=== PATIENT | male | born 1985 | race Caucasian/White ===

== ENCOUNTER 2018-12-14 17:48 | Inpatient (IN) | payer MEDICAID, OTHER ==
[2018-12-14 18:37] LABS: Urine Appearance Cloudy; Urine Bilirubin Negative (Negative); Urine Blood Negative (Negative); Urine Color Yellow; Urine Glucose Negative (Negative); Urine Ketones Negative (Negative); Urine Nitrite Negative (Negative); Urine Protein Negative (Negative); Urine Specific Gravity 1.014 (1.010-1.030); Urine Urobilinogen Negative (Negative)
[2018-12-14 18:53] LABS: Urine Benzodiazepine Screen Presumptive Positive (None Detect); Urine Opiates Screen None Detected (None Detect)
[2018-12-14 19:00] LABS: ABS Basophils 0.1 10^3/ul (0-0.2); ABS Eosinophils 0.3 10^3/ul (0-0.6); ABS Lymphocytes 3.3 10^3/ul (1.0-4.8); ABS Monocytes 0.8 10^3/ul (0-0.8); ABS Neutrophils 3.2 10^3/ul (1.5-7.7); Eosinophil % 4.6 %; Hematocrit 43 % (42-52); Lymphocyte % 43.5 %; Mean Corpuscular HGB Conc 35 g/dL (31-36); Mean Corpuscular Hemoglobin 33 pg (27-31); Mean Corpuscular Volume 93 fL (80-94); Mean Platelet Volume 6.8 fL (7.4-10.4); Nucleated Red Blood Cells % 0.1; Platelet Count 331 10^3/uL (150-450); Red Blood Count 4.58 10^6 /uL (4.18-5.48); Red Cell Distribution Width 13 % (10-15); White Blood Count 7.6 10^3/uL (3.5-10.8)
[2018-12-14 19:15] LABS: ALT 21 U/L (7-52); AST 21 U/L (13-39); Albumin 4.2 g/dL (3.2-5.2); Albumin/Globulin Ratio 1.7 (1-3); Alkaline Phosphatase 63 U/L (34-104); Anion Gap 10 mmol/L (2-11); BUN/Creatinine Ratio 9.1 (8-20); Blood Urea Nitrogen 7 mg/dL (6-24); CO2 Carbon Dioxide 23 mmol/L (22-32); Chloride 105 mmol/L (101-111); EGFR African American 141.7 (>60); EGFR Non-African American 117.1 (>60); Globulin 2.5 g/dL (2-4); Glucose 101 mg/dL (70-100); Potassium 3.5 mmol/L (3.5-5.0); Sodium 138 mmol/L (135-145); Total Protein 6.7 g/dL (6.4-8.9)
--- NOTE | 2018-12-14 19:23 | ED ---
Psychiatric Complaint - HPI Summary HPI Summary: This pt is a 33 y/o male presenting to [facility] c/o SI today. Pt reports he made "stupid comments" to his friends yesterday about suicide. He states "but am I really suicidal? No." Denies HI. He notes his has been smoking crystal meth for the last 6 months and this has aggravated his mental health. Per triage not, pt has taken 9 Xanax pills in the last 24 hours. Pt reports one prior suicide attempt. He admits to alcohol use and smoking cigarettes, in addition to crystal meth use. PMHx includes depression, anxiety. He does not take any medications. - History Of Current Complaint Chief Complaint: EDSuicidal Time Seen by Provider: 12/14/18 18:23 Hx Obtained From: Patient Onset/Duration: Lasting Days, Still Present Timing: Days Severity Currently: Moderate Character: Depressed Aggravating Factor(s): Drug Use Alleviating Factor(s): Nothing Related History: Positive For: Prior Psychiatric Issues Has Suicidal: Reports: Thoughts, Has Prior Attempt(s). Denies: With A Plan Has Homicidal: Denies: Thoughts, With A Plan PMH/Surg Hx/FS Hx/Imm Hx Endocrine/Hematology History: Denies: Hx Diabetes Cardiovascular History: Denies: Hx Hypertension Psychiatric History: Reports: Hx Substance Abuse - Immunization History Immunizations Up to Date: Unable to Obtain/Confirm Infectious Disease History: No Infectious Disease History: Denies: Traveled Outside the [place] in Last 30 Days - Family History Family History: No FHx of depression. - Social History Alcohol Use: Daily Alcohol Amount: 3-4 strawberry margaritia drinks Substance Use Type: Reports: Marijuana, Other Substance Use Comment - Amount & Last Used: crack, ICE, Xanax, meth Smoking Status (MU): Current Every Day Smoker Review of Systems Negative: Fever, Chills Cardiovascular: Negative Respiratory: Negative Psychological: Other - POSITIVE: SI thoughts Positive: Depressed. Negative: Other - NEGATIVE: SI plan, HI All Other Systems Reviewed And Are Negative: Yes Physical Exam - Summary Physical Exam Summary: Appearance: Well appearing, no pain distress Skin: warm, dry, reflects adequate perfusion Head/face: normal Eyes: EOMI, TERESA ENT: normal Neck: supple, non-tender Respiratory: CTA, breath sounds present Cardiovascular: RRR, pulses symmetrical Abdomen: non-tender, soft Musculoskeletal: normal, strength/ROM intact Neuro: normal, sensory motor intact, A&Ox3 Psych: depressed affect Triage Information Reviewed: Yes Vital Signs On Initial Exam: Initial Vitals Temp Pulse Resp BP Pulse Ox 98.3 F 120 16 159/104 97 12/14/18 18:00 12/14/18 18:00 12/14/18 18:00 12/14/18 18:00 12/14/18 18:00 Vital Signs Reviewed: Yes Diagnostics - Vital Signs Vital Signs Temp Pulse Resp BP Pulse Ox 12/14/18 18:00 98.3 F 120 16 159/104 97 - Laboratory Lab Results: Lab Results 12/14/18 12/14/18 12/14/18 Range/Units 18:15 18:15 18:53 WBC 7.6 (3.5-10.8) 10^3/uL RBC 4.58 (4.18-5.48) 10^6 /uL Hgb 15.0 (14.0-18.0) g/dL Hct 43 (42-52) % MCV 93 (80-94) fL MCH 33 H (27-31) pg MCHC 35 (31-36) g/dL RDW 13 (10-15) % Plt Count 331 (150-450) 10^3/uL MPV 6.8 L (7.4-10.4) fL Neut % (Auto) 41.3 % Lymph % (Auto) 43.5 % [place] % (Auto) 9.9 % Eos % (Auto) 4.6 % Baso % (Auto) 0.7 % Absolute Neuts (auto) 3.2 (1.5-7.7) 10^3/ul Absolute Lymphs (auto) 3.3 (1.0-4.8) 10^3/ul Absolute Monos (auto) 0.8 (0-0.8) 10^3/ul Absolute Eos (auto) 0.3 (0-0.6) 10^3/ul Absolute Basos (auto) 0.1 (0-0.2) 10^3/ul Absolute Nucleated RBC 0.0 10^3/ul Nucleated RBC % 0.1 Sodium (135-145) mmol/L Potassium (3.5-5.0) mmol/L Chloride (101-111) mmol/L Carbon Dioxide (22-32) mmol/L Anion Gap (2-11) mmol/L BUN (6-24) mg/dL Creatinine (0.67-1.17) mg/dL Est GFR ( Amer) (>60) Est GFR (Non-Af Amer) (>60) BUN/Creatinine Ratio (8-20) Glucose (70-100) mg/dL Calcium (8.6-10.3) mg/dL Total Bilirubin (0.2-1.0) mg/dL AST (13-39) U/L ALT (7-52) U/L Alkaline Phosphatase (34-104) U/L Total Protein (6.4-8.9) g/dL Albumin (3.2-5.2) g/dL Globulin (2-4) g/dL Albumin/Globulin Ratio (1-3) TSH Urine Color Yellow Urine Appearance Cloudy Urine pH 7.0 (5-9) Ur Specific [place] 1.014 (1.010-1.030) Urine Protein Negative (Negative) Urine Ketones Negative (Negative) Urine Blood Negative (Negative) Urine Nitrate Negative (Negative) Urine Bilirubin Negative (Negative) Urine Urobilinogen Negative (Negative) Ur Leukocyte Esterase Negative (Negative) Urine Glucose Negative (Negative) Salicylates Urine Opiates Screen None detected (None Detect) Acetaminophen Ur Barbiturates Screen None detected (None Detect) Ur Phencyclidine Scrn None detected (None Detect) Ur Amphetamines Screen Presumptive positive A (None Detect) U Benzodiazepines Scrn Presumptive positive A (None Detect) Urine Cocaine Screen None detected (None Detect) U Cannabinoids Screen None detected (None Detect) Serum Alcohol 12/14/18 Range/Units 18:53 WBC (3.5-10.8) 10^3/uL RBC (4.18-5.48) 10^6 /uL Hgb (14.0-18.0) g/dL Hct (42-52) % MCV (80-94) fL MCH (27-31) pg MCHC (31-36) g/dL RDW (10-15) % Plt Count (150-450) 10^3/uL MPV (7.4-10.4) fL Neut % (Auto) % Lymph % (Auto) % [place] % (Auto) % Eos % (Auto) % Baso % (Auto) % Absolute Neuts (auto) (1.5-7.7) 10^3/ul Absolute Lymphs (auto) (1.0-4.8) 10^3/ul Absolute Monos (auto) (0-0.8) 10^3/ul Absolute Eos (auto) (0-0.6) 10^3/ul Absolute Basos (auto) (0-0.2) 10^3/ul Absolute Nucleated RBC 10^3/ul Nucleated RBC % Sodium 138 (135-145) mmol/L Potassium 3.5 (3.5-5.0) mmol/L Chloride 105 (101-111) mmol/L Carbon Dioxide 23 (22-32) mmol/L Anion Gap 10 (2-11) mmol/L BUN 7 (6-24) mg/dL Creatinine 0.77 (0.67-1.17) mg/dL Est GFR ( Amer) 141.7 (>60) Est GFR (Non-Af Amer) 117.1 (>60) BUN/Creatinine Ratio 9.1 (8-20) Glucose 101 H (70-100) mg/dL Calcium 9.0 (8.6-10.3) mg/dL Total Bilirubin 0.40 (0.2-1.0) mg/dL AST 21 (13-39) U/L ALT 21 (7-52) U/L Alkaline Phosphatase 63 (34-104) U/L Total Protein 6.7 (6.4-8.9) g/dL Albumin 4.2 (3.2-5.2) g/dL Globulin 2.5 (2-4) g/dL Albumin/Globulin Ratio 1.7 (1-3) TSH Pending Urine Color Urine Appearance Urine pH (5-9) Ur Specific [place] (1.010-1.030) Urine Protein (Negative) Urine Ketones (Negative) Urine Blood (Negative) Urine Nitrate (Negative) Urine Bilirubin (Negative) Urine Urobilinogen (Negative) Ur Leukocyte Esterase (Negative) Urine Glucose (Negative) Salicylates Pending Urine Opiates Screen (None Detect) Acetaminophen Pending Ur Barbiturates Screen (None Detect) Ur Phencyclidine Scrn (None Detect) Ur Amphetamines Screen (None Detect) U Benzodiazepines Scrn (None Detect) Urine Cocaine Screen (None Detect) U Cannabinoids Screen (None Detect) Serum Alcohol Pending Result Diagrams: 12/14/18 18:53 12/14/18 18:53 Lab Statement: Any lab studies that have been ordered have been reviewed, and results considered in the medical decision making process. Re-Evaluation - Re-Evaluation First Eval Re-Evaluation Time: 20:02 Comment: Pt is medically cleared. Course/Dx - Course Assessment/Plan: Pt is a 33 y/o male presenting to [facility] c/o SI today. Pt reports he made "stupid comments" to his friends yesterday about suicide. He states "but am I really suicidal? No." Denies HI. He notes his has been smoking crystal meth for the last 6 months and this has aggravated his mental health. Blood work obtained. Toxicology is positive for benzodiazepine, amphetamine, serum alcohol of 75. Pt is medically cleared. A mental health evaluation is pending. Therefore pt will be signed out to Dr. Sofia pending MHE. - Differential Dx/Clinical Impression Provider Diagnosis: Depression Discharge - Sign-Out/Discharge Documenting (check all that apply): Sign-Out Patient Signing out patient TO: Michael Sofia - pending MHE Patient Received Moderate/Deep Sedation with Procedure: No - Discharge Plan Condition: Stable Referrals: No Primary Care Phys,NOPCP [Primary Care Provider] - - Billing Disposition and Condition Condition: STABLE - Attestation Statements Document Initiated by Damienibe: Yes Documenting Scribe: Krystal Garrison Provider For Whom Mamie is Documenting (Include Credential): Pancho Navarrete MD Scribe Attestation: Krystal Lucas, scribed for Pancho Navarrete MD on 12/14/18 at 2153. Scribe Documentation Reviewed: Yes Provider Attestation: The documentation as recorded by the Krystal javier accurately reflects the service I personally performed and the decisions made by me, Pancho Navarrete MD Status of Scribe Document: Viewed
[2018-12-14 19:43] LABS: Acetaminophen < 15 mcg/mL; Alcohol 75 mg/dL (<10); Salicylate < 2.50 mg/dL (<30)
[2018-12-14 19:58] LABS: TSH (Thyroid Stimulating Horm) 0.93 mcIU/mL (0.34-5.60)
--- NOTE | 2018-12-14 22:00 | ED ---
Progress - Progress Note Progress Note: Pt is a signout from Dr. Navarrete to Dr. Sofia at shift change 2200 12/14/18 pending a MHE. - Consult/PCP Time Called: 20:02 Re-Evaluation - Re-Evaluation First Eval Re-Evaluation Time: 20:02 Comment: Pt is medically cleared. Course/Dx - Course Course Of Treatment: Pt is a signout from Dr. Navarrete to Dr. Sofia at shift change 2200 12/14/18 pending a MHE. The pt was put on a MHU hold per Dr. Olivera , Psychiatrist, at 2201. This pt will be signed out to Dr. Gray at 0700 shift change pending a mental health evaluation. - Diagnoses Provider Diagnoses: Depression - Provider Notifications Discussed Care Of Patient With: Mumtaz Olivera Time Discussed With Above Provider: 22:01 Instructed by Provider To: Other - MHU hold until morning per Dr. Olivera Psychiatrist. Discharge - Sign-Out/Discharge Documenting (check all that apply): Sign-Out Patient, Receiving Sign-Out Signing out patient TO: Lynette Patel Receiving patient FROM: Pancho Navarrete Patient Received Moderate/Deep Sedation with Procedure: No - Discharge Plan Condition: Stable Referrals: No Primary Care Phys,NOPCP [Primary Care Provider] - - Attestation Statements Document Initiated by Scribe: Yes Documenting Scribe: Neftali Waller Provider For Whom Scribe is Documenting (Include Credential): Michael Sofia MD Scribe Attestation: INeftali, scribed for Michael Sofia MD on 12/15/18 at 0618. Status of Scribe Document: Ready
--- NOTE | 2018-12-15 06:57 | PN ---
ED Psychiatric Progress Note Date of Service: 12/14/18 Subjective: This is a 33 year-old M who is pending admission to [facility] / transfer to another psychiatric facility / discharge to home / or being observed secondary to SI. Pt. examined in room 5 at 0650. He is sitting up in bed in NAD. Objective: Vitals: Most recent vital signs documented below. General NAD, Alert and oriented x3. Laboratory: Current laboratory results documented below. Assessment: SI Plan: Pending MHE. Vital Signs Temp Pulse Resp BP Pulse Ox 97.7 F 108 15 145/92 95 12/14/18 22:55 12/15/18 02:52 12/15/18 02:52 12/15/18 02:52 12/15/18 02:52 Lab Results - Entire Visit 12/14/18 12/14/18 12/14/18 18:53 18:53 18:15 WBC 7.6 RBC 4.58 Hgb 15.0 Hct 43 MCV 93 MCH 33 H MCHC 35 RDW 13 Plt Count 331 MPV 6.8 L Neut % (Auto) 41.3 Lymph % (Auto) 43.5 [place] % (Auto) 9.9 Eos % (Auto) 4.6 Baso % (Auto) 0.7 Absolute Neuts (auto) 3.2 Absolute Lymphs (auto) 3.3 Absolute Monos (auto) 0.8 Absolute Eos (auto) 0.3 Absolute Basos (auto) 0.1 Absolute Nucleated RBC 0.0 Nucleated RBC % 0.1 Sodium 138 Potassium 3.5 Chloride 105 Carbon Dioxide 23 Anion Gap 10 BUN 7 Creatinine 0.77 Est GFR ( Amer) 141.7 Est GFR (Non-Af Amer) 117.1 BUN/Creatinine Ratio 9.1 Glucose 101 H Calcium 9.0 Total Bilirubin 0.40 AST 21 ALT 21 Alkaline Phosphatase 63 Total Protein 6.7 Albumin 4.2 Globulin 2.5 Albumin/Globulin Ratio 1.7 TSH 0.93 Urine Color Urine Appearance Urine pH Ur Specific [place] Urine Protein Urine Ketones Urine Blood Urine Nitrate Urine Bilirubin Urine Urobilinogen Ur Leukocyte Esterase Urine Glucose Salicylates < 2.50 Urine Opiates Screen None detected Acetaminophen < 15 Ur Barbiturates Screen None detected Ur Phencyclidine Scrn None detected Ur Amphetamines Screen Presumptive positive A U Benzodiazepines Scrn Presumptive positive A Urine Cocaine Screen None detected U Cannabinoids Screen None detected Serum Alcohol 75 H 12/14/18 18:15 WBC RBC Hgb Hct MCV MCH MCHC RDW Plt Count MPV Neut % (Auto) Lymph % (Auto) [place] % (Auto) Eos % (Auto) Baso % (Auto) Absolute Neuts (auto) Absolute Lymphs (auto) Absolute Monos (auto) Absolute Eos (auto) Absolute Basos (auto) Absolute Nucleated RBC Nucleated RBC % Sodium Potassium Chloride Carbon Dioxide Anion Gap BUN Creatinine Est GFR ( Amer) Est GFR (Non-Af Amer) BUN/Creatinine Ratio Glucose Calcium Total Bilirubin AST ALT Alkaline Phosphatase Total Protein Albumin Globulin Albumin/Globulin Ratio TSH Urine Color Yellow Urine Appearance Cloudy Urine pH 7.0 Ur Specific [place] 1.014 Urine Protein Negative Urine Ketones Negative Urine Blood Negative Urine Nitrate Negative Urine Bilirubin Negative Urine Urobilinogen Negative Ur Leukocyte Esterase Negative Urine Glucose Negative Salicylates Urine Opiates Screen Acetaminophen Ur Barbiturates Screen Ur Phencyclidine Scrn Ur Amphetamines Screen U Benzodiazepines Scrn Urine Cocaine Screen U Cannabinoids Screen Serum Alcohol
--- NOTE | 2018-12-15 07:26 | ED ---
Progress - Progress Note Progress Note: Pt is a signout from Dr. Sofia to Dr. Patel at shift change 0700 on 12/15/18 pending a MHE. - Consult/PCP Time Called: 20:02 Re-Evaluation - Re-Evaluation First Eval Re-Evaluation Time: 20:02 Comment: Pt is medically cleared. 2nd re-eval Re-Evaluation Time: 09:10 Comment: Pt will be involuntarily admitted to the [facility]. Third Eval Re-Evaluation Time: 09:38 Comment: The pt is sleeping. Course/Dx - Course Course Of Treatment: Pt is a signout from Dr. Sofia to Dr. Patel at shift change 0700 on 12/15/[address] Mercado will be involuntarily admitting the patient with dx of mood disorder unspecified. - Diagnoses Provider Diagnoses: Mood disorder - Provider Notifications Time Discussed With Above Provider: 22:01 Instructed by Provider To: Other - MHU hold until morning per Dr. Olivera, Psychiatrist. Discharge - Sign-Out/Discharge Documenting (check all that apply): Patient Departure, Receiving Sign-Out Receiving patient FROM: Michael Sofia - Discharge Plan Condition: Stable Disposition: PSYCHIATRIC FACILITY-[facility] [place] - Billing Disposition and Condition Condition: STABLE Disposition: Psychiatric Facility [facility] [place] - Attestation Statements Document Initiated by Scribe: Yes Documenting Scribe: Bailee Scott Provider For Whom Damienibe is Documenting (Include Credential): Lynette Rodriguez MD. Scribe Attestation: I, Bailee Scott, scribed for Lynette Patel MD. on 12/15/18 at 1719. Scribe Documentation Reviewed: Yes Provider Attestation: The documentation as recorded by the scribe, Bailee Scott accurately reflects the service I personally performed and the decisions made by me, Lynette Patel MD. Status of Scribe Document: Viewed
[2018-12-15] MEDS ORDERED: Al Hydrox/Mg Hydrox/Simet LIQ* 30 ML UDC PO PRN (10:30)
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
[2018-12-15] MEDS: Nicotine* 2MG (FRUIT FLAVOR) GUM PO PRN ×2 (13:26→16:58)
[2018-12-15] MEDS: Nicotine Patch Removal NOTE PATCH OFF SCH (21:04)
[2018-12-16] MEDS: Nicotine* 2MG (FRUIT FLAVOR) GUM PO PRN ×2 (07:36→12:52)
[2018-12-16 09:37] LABS: HDL Cholesterol 40.6 mg/dL
[2018-12-16] MEDS: Vitamin THERAPEUTIC TAB PO SCH (10:41)
[2018-12-16] MEDS: Nicotine PATCH 21 MG/24 HR* PATCH TRANSDERM SCH (10:41)
[2018-12-16 11:17] LABS: Hepatitis C Antibody Negative (Negative)
--- NOTE | 2018-12-16 11:33 | PN ---
Subjective - Subjective Date of Service: 12/16/18 Service Type: [id number] Hosp care 35 min high complexity Subjective: Nursing Report: Patient was visible on unit, no behavioral events. Slept overnight without incident. He is not attending group activities. CC: "I want to go to rehab" Patient was seen and evaluated in the common room. The patient reported that he never wanted to end his life and that he said that when he only said that when he was intoxicated. He describes how meth has ruined his life and his friendships. He mentioned that things will be different now because he was arrested and feels disgusted with himself. He reported having adequate appetite and sleep. Objective - General Observations Appearance: Disheveled Appears Stated Age: Yes Stature: Thin Posture: Slumped Eye Contact: Average Behavior/Activity: Accelerated - Interaction Observations Attitude Towards Examiner: Manipulative Stated Mood: Dysphoric Affect: Blunted Speech Pattern/Tone: Clear Thought Process: Coherent Perception: WNL Thought Content: WNL Hallucination Type: None Delusion Type: None - Cognitive Function Orientation: A&O x 4 Level of Consciousness: Awake - Medication Compliance Cooperative with Inpatient Medication Regimen: No - Group Participation Participates in Group Activities: No Assessment - Assessment Merits Inpatient Hospitalization: For Immediate Safety Plan - Plan Treatment Plan: Name: JERZY CAMACHO Birthdate: 1985 [id number] #Q15 minute observation. # The patient requires psychiatric inpatient admission at this time to assure safety, receive treatment and work toward stabilization. # Collaboration with Chair Finisher Pia Dueñas #HIV, RPR, and Hep C ordered #Substance Abuse resources offered and patient requesting outpatient rehab resources #Tobacco use disorder: nicotine supplement offered and put in place. #Goals before discharge include: To eliminate/ reduce suicidal ideation Tentative Discharge: Pending psychiatric stabilization. The risks, benefits, and alternative treatment options were discussed as well as the risks of refusing treatment. Continued Medication Management: Continue Outpt Medication Medications: Current Medications Acetaminophen (Tylenol Tab*) 650 mg PO Q4H PRN PRN Reason: PAIN or TEMP > 101 F Al Hydrox/Mg Hydrox/Simethicone (Maalox Plus*) 30 ml PO Q4H PRN PRN Reason: INDIGESTION Multivitamins (Theragran Tab*) 1 tab PO DAILY NATASHA Last Admin: 12/16/18 10:41 Dose: 1 tab Nicotine (Nicotine Patch 21 Mg/24 Hr*) 1 patch TRANSDERM DAILY [facility] Last Admin: 12/16/18 10:41 Dose: 1 patch Nicotine Polacrilex (Nicotine Gum*) 2 mg PO Q2H PRN PRN Reason: CRAVINGS Last Admin: 12/16/18 07:36 Dose: 2 mg Pharmacy Profile Note (Nicotine Patch Removal Note*) 1 note PATCH OFF 2100 [facility] Last Admin: 12/15/18 21:04 Dose: 1 note - Discharge Plan Discharge Plan: Drug/Alcohol Rehab
[2018-12-16 13:58] LABS: HIV 4th Generation Negative (Negative)
[2018-12-16] MEDS: Acetaminophen TAB* 325 MG PO PRN (14:04)
[2018-12-16] MEDS: Nicotine Patch Removal NOTE PATCH OFF SCH (21:30)
[2018-12-17] MEDS ORDERED: Escitalopram * 10 MG TAB PO SCH (09:00)
[2018-12-17] MEDS: Nicotine* 2MG (FRUIT FLAVOR) GUM PO PRN ×2 (09:22→14:46)
[2018-12-17] MEDS: Vitamin THERAPEUTIC TAB PO SCH (09:22)
[2018-12-17] MEDS: Nicotine PATCH 21 MG/24 HR* PATCH TRANSDERM SCH (09:25)
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
[2018-12-17 11:01] VITALS: BP 190/98
[2018-12-17] MEDS: Acetaminophen TAB* 325 MG PO PRN (14:46)
== END 2018-12-17 16:00 | disposition home or self-care (01) | DRG 774 ==
LOC: ED 17:48 → BSU 12-15 10:09
PROVIDERS: ADMIT Psychiatry & Neurology Psychiatry; ATTEND Psychiatry & Neurology Psychiatry
DX: F15.94 Other stimulant use, unspecified with stimulant-induced mood disorder (principal); R45.851 Suicidal ideations; F14.94 Cocaine use, unspecified with cocaine-induced mood disorder; F17.210 Nicotine dependence, cigarettes, uncomplicated; Z62.810 Personal history of physical and sexual abuse in childhood; Z81.3 Family history of other psychoactive substance abuse and dependence; Z72.89 Other problems related to lifestyle
CPT/HCPCS: 36415; 80053; 80061; 80307; 80320; 80329; 81003; 83036; 84443; 85025; 86780; 86803; 87389; 99222; 99233; 99238; 99285; A9270-GY; G0480

== ENCOUNTER 2019-01-17 20:54 | Emergency (ER) | payer OTHER ==
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
[2019-01-17] MEDS ORDERED: oxyCODONE TAB* 5 MG TAB PO ONE ×2 (21:06→22:38)
[2019-01-17] MEDS ORDERED: Ibuprofen TAB* 600 MG PO ONE (21:06)
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
[2019-01-17 22:46] VITALS: BP 151/102
== END 2019-01-17 22:45 | disposition home or self-care (01) ==
LOC: ED 20:54
DX: S52.571A Other intraarticular fracture of lower end of right radius, initial encounter for closed fracture (principal); W01.0XXA Fall on same level from slipping, tripping and stumbling without subsequent striking against object, initial encounter; Y92.9 Unspecified place or not applicable; F17.200 Nicotine dependence, unspecified, uncomplicated
CPT/HCPCS: 99282; A9270-GY

== ENCOUNTER 2019-01-26 08:04 | Day surgery (SDC) | payer OTHER ==
--- NOTE | 2019-01-22 09:30 | HP ---
PREOPERATIVE HISTORY AND PHYSICAL: DATE OF SURGERY/ADMISSION: 01/26/19 DATE OF OFFICE VISIT/ENCOUNTER: ATTENDING SURGEON: Machelle Starr MD* (dictated by DAXA Son). PROCEDURE: Open reduction internal fixation, right wrist. HISTORY OF PRESENT ILLNESS: Shayne Kelly is a 33-year-old male with a history of polysubstance abuse and for the past 2 months, he has been in outpatient recovery. He does admit to still using alcohol on occasion. The patient suffered injury to his right wrist on 01/17/19 when he tripped over his shoe lace and fell on to an outstretched right hand. He was seen at [facility] and had some x-rays, which showed a comminuted, displaced interarticular fracture of the distal radius. He was splinted and referred to Dr. Starr for followup and appropriate treatment. He has been taking ibuprofen and Tylenol for pain control, but is requesting something stronger medication bedoya for pain management. He denies any numbness or tingling. This is his dominant arm. After evaluation by Dr. Starr and review of x- rays, he has consented to proceed with surgical intervention for best outcome. A CT scan will also be performed prior to proceeding with surgery. He was prescribed a one-time prescription for tramadol for his current pain and we will plan on using Toradol for postoperative pain management. PAST MEDICAL HISTORY: History of polysubstance abuse. PAST SURGICAL HISTORY: None. CURRENT MEDICATIONS: 1. Ibuprofen and Tylenol p.r.n. 2. Vitamin daily. 3. Vitamin C daily. ALLERGIES: No known drug allergies. FAMILY MEDICAL HISTORY: Diabetes, hypertension, cancer. 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 He is in outpatient recovery. He is a current smoker. He smokes a pack per day, has done so for the past 10 years. He denies any recreational drug use over the past 2 months. He is occasionally still drinking alcohol. REVIEW OF SYSTEMS: Negative for general, cephalic, cardiovascular, respiratory , GI, , other musculoskeletal, integumentary, endocrine, neurologic, and hematologic symptoms. Infectious Disease: Negative for MRSA, hepatitis C, HIV. PHYSICAL EXAMINATION GENERAL: Well-developed, well-nourished 33-year-old male, in no acute distress. VITAL SIGNS: Height 5 feet 7 inches, weight 158 pounds, pulse rate 100, blood pressure 136/70. HEENT: Normocephalic, atraumatic. Pupils are equal, round, and reactive to light and accommodation. Extraocular movements are intact. Throat is clear. NECK: Supple. No palpable lymph nodes. PULMONARY: Lungs are clear to auscultation bilaterally. No wheezes, rales, or rhonchi. CARDIOVASCULAR: Regular rate and rhythm. S1, S2. No murmurs, rubs, or gallops. No edema. ABDOMEN: Positive bowel sounds, soft, nontender. MUSCULOSKELETAL: On exam of his right wrist, he has some visible deformity and moderate swelling at the wrist. There is visible mild ecchymosis. He has good motion in his fingers and can make a good fist. Neurovascular function is intact. NEUROLOGICAL: Alert and oriented x3. Cranial nerves II through XII are intact. Sensation is intact to light touch. SKIN: Intact. IMAGING STUDIES: X-rays: AP, lateral, and oblique of the left wrist show an intraarticular comminuted, displaced distal radius fracture. IMPRESSION: Right distal radius fracture. PLAN: The patient is scheduled to undergo an open reduction internal fixation of right wrist with Dr. Starr on 01/26/19. We will plan on obtaining a CT scan prior to date of surgery. He will return to the office 10 days postop for followup and suture removal. The patient was prescribed tramadol for current pain and will be prescribed Toradol for postoperative pain management. DAXA SON [id number]/[facility] #: [id number] ANNMARIE
[~2019-01-26 08:04] MED LIST: Buffered Lidocaine 1% SYRIN* 1 ML/SYRINGE INTRADERM ONE; Dexamethasone TAB* 4 MG ONE; Dexamethasone TAB* 4 MG PO ONE; DiMENhydriNATE IV* 50 MG/ML VIAL IV PUSH PRN; Famotidine IV* 10 MG/ML 2 ML (20 mg) IV ONE; Famotidine IV* 10 MG/ML 2 ML (20 mg) ONE; HYDROmorphone INJ1* 1 MG/ML SYRINGE IV PRN; Lactated Ringers 1000 ML Bag* 1,000 ML IV SCH; Naloxone* 0.4 MG/ML 1 ML VIAL IV PRN; Ondansetron ODT TAB* 4 MG ONE; Ondansetron ODT TAB* 4 MG PO ONE; PROCHLORPERAZINE INJ 5 MG/ML 2 ML VIAL IV PRN; fentaNYL* 50 MCG/ML 2 ML VIAL (100 MCG VIAL) IV PRN; oxyCODONE/Acetamin 5/325 MG* TAB PO PRN
[2019-01-26] MEDS ORDERED: ceFAZolin 2 GM in NS PREMIX(*) 2 GM/100 ML BAG IVPB ONE (08:29)
[2019-01-26] MEDS ORDERED: KETAMINE HCL* 50 MG/ML 10 ML VIAL ONE (09:03)
[2019-01-26] MEDS ORDERED: Midazolam* 1 MG/ML 5 ML VIAL (5 MG) ONE (09:03)
[2019-01-26] MEDS ORDERED: fentaNYL* 50 MCG/ML 2 ML VIAL (100 MCG VIAL) ONE (09:03)
[2019-01-26] MEDS ORDERED: Bupivacaine 0.5% SDV PF* 30ML VIAL ONE (09:27)
[2019-01-26] MEDS ORDERED: Lidocaine 2% PF * 5 ML VIAL ONE (10:00)
[2019-01-26] MEDS ORDERED: Ketorolac INJ* 30 MG/ML 1 ML VIAL ONE (10:00)
[2019-01-26] MEDS ORDERED: Propofol* 10 MG/ML 20 ML BTL ONE (10:00)
[2019-01-26] MEDS ORDERED: HYDROmorphone INJ* 0.5 MG/0.5 ML SYRINGE ONE ×2 (10:02→10:26)
[2019-01-26 12:09] VITALS: BP 140/99
--- NOTE | 2019-01-26 15:21 | OP ---
DATE OF OPERATION: 01/26/19 [facility] DATE OF : 87 SURGEON: Machelle Starr MD STEEL [employer]IE [employer]ESS SET UP OPERATOR: DAXA Son ANESTHESIA: General. PRE-OP DIAGNOSIS: Comminuted intraarticular fracture of right distal radius. POST-OP DIAGNOSIS: Comminuted intraarticular fracture of right distal radius. PROCEDURE PERFORMED: Open reduction internal fixation of right distal radius. ESTIMATED BLOOD LOSS: Zero. TOURNIQUET TIME: Approximately 45 minutes. INDICATIONS FOR PROCEDURE: Shayne is a 33-year-old male who fell and injured his right wrist. X-ray and CT scan show a displaced intraarticular fracture with several articular fragments. He presents for ORIF. DESCRIPTION OF PROCEDURE: The patient was brought to the operating room and was given a general anesthetic and placed in supine position on the operating table with a tourniquet around his right upper arm. Skin of his right upper extremity was prepped and draped in the usual sterile fashion. The upper extremity was exsanguinated and the tourniquet elevated to 250 mmHg. A longitudinal incision was made over the FCR tendon. We dissected through the subcutaneous tissue down to the FCR tendon sheath. The superficial and deep portions of the sheath were incised longitudinally. We then retracted the FPL muscle and tendon ulnarly. The pronator quadratus muscle was incised and subperiosteally dissected off the fracture fragments. The fracture was reduced and its position was confirmed on the C-arm. We secured a plate from the [employer]ynthe[employer] variable angle distal radius set with four distal and three proximal screws. The four distal screws secured at least three intraarticular fragments. The wound was irrigated with saline. The C-arm was used to visualize the fracture fragments and the hardware which were all in good position. The pronator quadratus was repaired over the plate with 2-0 Vicryl suture. The FCR tendon sheath was reapproximated with 2-0 Vicryl suture and the skin edges reapproximated with 4-0 nylon suture. The wound was dressed with Xeroform, 4x4, Webril, and a volar splint with an Nam wrap. The patient tolerated the procedure well and was brought to the recovery room in good condition. [id number]/[facility] #: [id number] [facility] HEALTH NETWORKJannie
== END 2019-01-26 11:58 | disposition home or self-care (01) ==
LOC: OREAST 08:04
PROVIDERS: ATTEND Orthopaedic Surgery
DX: S52.571A Other intraarticular fracture of lower end of right radius, initial encounter for closed fracture (principal); W19.XXXA Unspecified fall, initial encounter; Y92.9 Unspecified place or not applicable; Z72.0 Tobacco use; F19.20 Other psychoactive substance dependence, uncomplicated; F10.10 Alcohol abuse, uncomplicated
CPT/HCPCS: 76000; A9270-GY; C1713; C1776; J0690; J1170; J1885; J2250; J2704; J3010; J3490; J8540

== ENCOUNTER 2019-03-16 08:42 | Day surgery (SDC) | payer OTHER ==
--- NOTE | 2019-03-10 13:45 | HP ---
AMENDED REPORT NOW INCLUDES DESIGNATED COSIGNER PREOPERATIVE HISTORY AND PHYSICAL: DATE OF SURGERY/ADMISSION: 03/16/19 DATE OF OFFICE VISIT/ENCOUNTER: 03/08/19 ATTENDING SURGEON: Machelle Starr MD.* (DICTATED BY DAXA SALAS) PROCEDURE: Revision open reduction internal fixation, right wrist. HISTORY OF PRESENT ILLNESS: This is a 33-year-old male with a history of polysubstance abuse. He has recently been in outpatient recovery. He on underwent an open reduction internal fixation of a right wrist fracture. Intraoperatively, there was successful reduction of the fracture and placement of plate and screws. As time went on, postoperatively x-rays showed some loss of the reduction, and the patient developed pain and decreased motion with flexion and supination of the wrist. Dr. Starr at this time is recommending a revision of the open reduction internal fixation and the patient has consented to proceed. PAST MEDICAL HISTORY: History of polysubstance abuse. PAST SURGICAL HISTORY: Open reduction internal fixation, right wrist. CURRENT MEDICATIONS: 1. Ibuprofen and Tylenol p.r.n. 2. Vitamin daily. 3. Vitamin C daily. ALLERGIES: No known drug allergies. FAMILY MEDICAL HISTORY: Diabetes, hypertension, cancer. 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 He is in outpatient recovery. He is a current smoker and smokes a pack a day, has done so for the past 10 years. He denies recreational drug use over the past 2 months. He is occasionally still drinking alcohol. REVIEW OF SYSTEMS: Negative for general, cephalic, cardiovascular, respiratory , GI, , other musculoskeletal, integumentary, endocrine, neurologic, and hematologic symptoms. Infectious Disease: Negative for MRSA, hepatitis C, HIV. PHYSICAL EXAMINATION GENERAL: Well-developed, well-nourished 33-year-old male, in no acute distress. VITAL SIGNS: Height 5 feet 7 inches, weight 150 pounds, pulse rate 100, blood pressure 140/90. HEENT: Normocephalic, atraumatic. Pupils are equal, round, and reactive to light and accommodation. Extraocular movements are intact. Throat is clear. NECK: Supple. No palpable lymph nodes. PULMONARY: Lungs are clear to auscultation bilaterally. No wheezes, rales, or rhonchi. CARDIOVASCULAR: Regular rate and rhythm. S1, S2. No murmurs, rubs, or gallops. No edema. ABDOMEN: Positive bowel sounds, soft, nontender. MUSCULOSKELETAL: On exam of his right wrist, he has minimal tenderness to palpation of the distal radius, but has trouble with flexion of the wrist, supination of the forearm. He can make a good fist. Neurovascular function is intact. He has positive Tinel's of the median nerve. IMAGING STUDIES: X-rays: AP and lateral of the right wrist show one of the fracture fragments has escaped from under the plate and is sitting volarly. This may be blocking his flexion. Otherwise, the fracture is reasonably well aligned. IMPRESSION: Status post ORIF of the right wrist with some loss of reduction, malalignment of one of the articular fragments. PLAN: The patient is scheduled to undergo a revision open reduction internal fixation of right wrist with Dr. Starr on 03/16/19. He will return to the office in 10 days postop for followup and suture removal. The patient will be prescribed Toradol for postoperative pain management. DAXA SALAS [id number]/[facility] #: [id number] ANNMARIE
[~2019-03-16 08:42] MED LIST changes: -Dexamethasone TAB* 4 MG ONE; -Dexamethasone TAB* 4 MG PO ONE; -DiMENhydriNATE IV* 50 MG/ML VIAL IV PUSH PRN; -Famotidine IV* 10 MG/ML 2 ML (20 mg) IV ONE; -Famotidine IV* 10 MG/ML 2 ML (20 mg) ONE; -HYDROmorphone INJ1* 1 MG/ML SYRINGE IV PRN; -Naloxone* 0.4 MG/ML 1 ML VIAL IV PRN; -Ondansetron ODT TAB* 4 MG ONE; -Ondansetron ODT TAB* 4 MG PO ONE; -PROCHLORPERAZINE INJ 5 MG/ML 2 ML VIAL IV PRN; -fentaNYL* 50 MCG/ML 2 ML VIAL (100 MCG VIAL) IV PRN; -oxyCODONE/Acetamin 5/325 MG* TAB PO PRN
[2019-03-16] MEDS ORDERED: ceFAZolin 2 GM PREMIX in ORs 2 GM/50 ML BAG ONE (09:08)
[2019-03-16] MEDS ORDERED: Midazolam* 1 MG/ML 2 ML VIAL (2 MG) ONE (09:56)
[2019-03-16] MEDS ORDERED: fentaNYL* 50 MCG/ML 2 ML VIAL (100 MCG VIAL) ONE ×3 (09:56→12:29)
[2019-03-16] MEDS ORDERED: Buffered Lidocaine 1% SYRIN* 1 ML/SYRINGE INTRADERM ONE (10:04)
[2019-03-16] MEDS ORDERED: Bupivacaine 0.5%* 50 ML MDV VIAL ONE (10:46)
[2019-03-16] MEDS ORDERED: Naloxone* 0.4 MG/ML 1 ML VIAL IV PRN (12:35)
[2019-03-16] MEDS ORDERED: HYDROcodone/ACETAMIN 5-325 MG* 1 TAB PO PRN (12:35)
[2019-03-16] MEDS ORDERED: HYDROmorphone INJ1* 1 MG/ML SYRINGE IV PRN (12:35)
[2019-03-16] MEDS ORDERED: Lidocaine 2% PF * 5 ML VIAL ONE (12:51)
[2019-03-16] MEDS ORDERED: Propofol* 10 MG/ML 20 ML BTL ONE (12:51)
[2019-03-16] MEDS ORDERED: Ondansetron INJ* 2 MG/ML VIAL ONE (12:51)
[2019-03-16] MEDS ORDERED: Dexamethasone IV* 4 MG/ML 1 ML (4 MG) ONE (12:51)
[2019-03-16] MEDS ORDERED: HYDROcodone/ACETAMIN 5-325 MG* 1 TAB ONE (14:03)
[2019-03-16 14:06] VITALS: BP 119/82
--- NOTE | 2019-03-17 01:23 | OP ---
DATE OF OPERATION: 03/16/19 - [facility] DATE OF : 87 SURGEON: Machelle Starr MD COLLAR SEPARATOR: DAXA Son ANESTHESIA: General. PRE-OP DIAGNOSIS: Loss of fixation status post right distal radius open reduction internal fixation. POST-OP DIAGNOSIS: Loss of fixation status post right distal radius open reduction internal fixation. OPERATIVE PROCEDURE: Revision open reduction internal fixation of the right distal radius. INDICATIONS: Shayne is a 34-year-old male who had a very distal and comminuted fracture of the distal radius which was treated with open reduction internal fixation about 2 months ago. He has lost some of the fixation in his wrist; it subluxed; he presents for revision ORIF of the distal radius. ESTIMATED BLOOD LOSS: Zero. TOURNIQUET TIME: 1 hour and 15 minutes. DESCRIPTION OF PROCEDURE: The patient was brought to the operating room, was given a general anesthetic, placed in a supine position on the operating table with a tourniquet around his right upper arm. The skin of his right upper extremity was prepped and draped in the usual sterile fashion. The upper extremity was exsanguinated and the tourniquet elevated to 250 mmHg. The previous scar was incised and we dissected through the FCR fascia. The FPL muscle was retracted and the pronator quadratus was elevated off the plate. The plate was removed with the appropriate screw lease purchase truck driver and then we could see that the volar segment of the fracture had escaped distal to the plate and therefore was not captured by the distal end of the plate. This allowed the carpus to sublux volarly. The fracture fragments were carefully pried away from the main segment of the bone into the articular surface and then with some traction and compression, we were able to reapproximate the volar fragments to the dorsal fragments. These were secured with a wide plate from the [employer]ynthes variable angle set with 5 distal screws and 3 proximal screws. The proximal screws were locking because of the presence of the holes from the other plate. The position of the hardware and fracture fragments were checked on the C-arm in the AP and lateral views and found to be satisfactory. The joint was no longer subluxed and, with gentle range of motion, there did not appear to be any instability of the fracture fragments. The wound was copiously irrigated with saline. The pronator quadratus was repaired over the plate. The FCR tendon sheath was repaired with 2-0 Vicryl and the skin edges were reapproximated with 4-0 nylon suture and the wound was dressed with Xeroform, 4x4, Webril, and a sugar-tong splint. The patient tolerated the procedure well and was brought to the recovery room in good condition. [id number]/[facility] #: [id number] MTDD
== END 2019-03-16 14:21 | disposition home or self-care (01) ==
LOC: OREAST 08:42
PROVIDERS: ATTEND Orthopaedic Surgery
DX: T84.122A Displacement of internal fixation device of bone of right forearm, initial encounter (principal); S52.501S Unspecified fracture of the lower end of right radius, sequela; F19.10 Other psychoactive substance abuse, uncomplicated; F17.210 Nicotine dependence, cigarettes, uncomplicated; X58.XXXS Exposure to other specified factors, sequela; Y92.9 Unspecified place or not applicable
CPT/HCPCS: 76000; 88300; C1713; C1776; J0690; J1100; J2250; J2405; J2704; J3010; J3490

== ENCOUNTER 2023-11-23 17:58 | Observation (INO) ==
[2023-11-23] MEDS: Lactated Ringers 1000 ml BAG 1,000 ML IV ONE (19:40)
[2023-11-23 19:43] LABS: ABS Basophils 0.1 10^3/uL (0.0-0.1); ABS Eosinophils 0.2 10^3/uL (0.0-0.5); ABS Lymphocytes 2.2 10^3/uL (1.0-4.8); ABS Monocytes 1.1 10^3/uL (0.0-1.1); ABS Neutrophils 5.7 10^3/uL (1.5-7.6); ABS Nucleated RBC 0.01 10^3/ul; Eosinophil % 1.8 %; Hematocrit 39.5 % (38-53); Hemoglobin 13.3 g/dL (13.2-16.3); Lymphocyte % 23.8 %; Mean Corpuscular Hemoglobin 31.8 pg (27-33); Mean Corpuscular Hgb Conc 33.8 g/dL (31-36); Mean Corpuscular Volume 94.2 fL (80-97); Mean Platelet Volume 6.6 fL (7.5-11.2); Nucleated Red Blood Cells % 0.1 %/100WBC (0.0-0.8); Platelet Count 475 10^3/uL (150-450); Red Blood Count 4.19 10^6/uL (4.06-5.63); Red Cell Distribution Width 13.5 % (12-17); White Blood Count 9.2 10^3/uL (3.6-10.2)
[2023-11-23] MEDS: HYDROmorphone 0.5 MG/0.5 ML SYRINGE IV ONE (20:11)
[2023-11-23 20:28] LABS: Albumin 4.6 g/dL (3.2-5.2); C Reactive Protein 2.68 mg/L (<8.01); Calcium 9.5 mg/dL (8.6-10.3); Creatinine, Serum 0.87 mg/dL (0.67-1.17); Globulin 2.3 g/dL (2-4); Potassium 4.1 mmol/L (3.5-5.0); Total Bilirubin 0.7 mg/dL (0.2-1.0); Total Protein 6.9 g/dL (6.4-8.9)
[2023-11-23 21:37] LABS: Urine Appearance Clear; Urine Bilirubin Negative (Negative); Urine Blood Negative (Negative); Urine Color Yellow; Urine Glucose Trace (Negative); Urine Ketones Trace (Negative); Urine Nitrite Negative (Negative); Urine Protein 1+ (>=30 mg/dL) (Negative); Urine Specific Gravity 1.029 (1.002-1.030); Urine Urobilinogen 2+ (Negative)
[2023-11-23 21:43] LABS: Urine Bacteria Absent /HPF (Absent); Urine Red Blood Cell Trace(0-2/hpf) /HPF (0-Trace); Urine Squamous Epithelial Cell Present /HPF (Absent); Urine White Blood Cell 2+(11-20/hpf) /HPF (0-Trace)
[2023-11-23] MEDS: Piperacillin/Tazobac 3.375 BAG 3.375 GM/100 ML BAG IV ONE (22:24)
[2023-11-24] MEDS: cefTRIAXone VIAL 500 MG VIAL IM ONE (02:18)
[2023-11-24] MEDS: Lidocaine 1% MPF 5 ML VIAL INJ ONE (02:18)
[2023-11-24] MEDS: Morphine 2 MG/ML SYRINGE IV PRN (02:23)
[2023-11-24] MEDS: Benzocaine/Menthol LOZ PO PRN (03:50)
[2023-11-24] MEDS: Acetaminophen IV 1 GM/100ML 1,000 MG/100 ML BAG IV PRN (03:54)
[2023-11-24] MEDS: Nicotine PATCH 7 MG/24 HR PATCH TRANSDERM SCH (03:57)
[2023-11-24] MEDS: cefTRIAXone 1 gm/50 mL D5W 1 GM/50 ML BAG IV SCH (09:53)
[2023-11-24 10:21] VITALS: BP 140/96
[2023-11-24] MEDS: COVID VAC 23-24(12+)(Moderna) SYR 0.5 ML IM ONE (12:22)
[2023-11-24 12:33] LABS: Chlamydia trachomatis NAA Negative (Negative); Neisseria gonorrhoeae (GC) NAA Negative (Negative)
[2023-11-24 13:10] LABS: HIV 4th Generation Nonreactive (Nonreactive)
[2023-11-24 14:20] LABS: Hepatitis C Antibody Negative (Negative)
[2023-11-27 22:04] LABS: Mycoplasma hominis Result Negative; Mycoplasma hominis Source URINE
[2023-11-27 22:05] LABS: Ureaplasma Source URINE; Ureaplasma parvum PCR Negative; Ureaplasma urealyticum PCR Negative
== END 2023-11-24 13:30 | disposition home or self-care (01) ==
LOC: EDHOLD 17:58 → ED 17:58 → SUATTDRO 23:54 → EDHOLD 11-24 02:47 → SSU 11-24 03:44
PROVIDERS: ADMIT Internal Medicine; ATTEND Internal Medicine